=== PATIENT | female | born 1945 | race Caucasian/White ===

== ENCOUNTER → 2020-08-25 | Outpatient (CLI) | payer OTHER ==
[~2020-08-25] VITALS: Ht 167.6 cm; Wt 88.5 kg
[~2020-08-25] MED LIST: ARICEPT10 M1 PO; ATORVASTATIN CA20 MG PO; CARBIDOPA-LEVO1 EAC7 PO; CLONAZEPAM 0.50.5 M1 PO; DULOXETINE HCL60 MG PO; FLECAINIDE ACET50 M2 PO; GABAPENTIN100 MG PO; LEVOTHYROXINE125 MC1 PO; LISINOPRIL20 MG PO; MELOXICAM15 MG PO; MIRALAX119 GM PO; MORPHINE SULFAT15 M3 PO; NORVASC10 MG PO; PROTONIX40 M4 PO; TIZANIDINE HCL4 M2 PO; XARELTO20 MG PO
--- NOTE | ~2020-08-25 | HPC ---
[facility] [address] [address] PAIN MANAGEMENT CONSULTATION Name: JUSTYNA WILLIS Room #: REG CORAL NohemiSydKyle#: [id number] Admission: 08/25/20 Attend Phys: Kirt Laguna DO Discharge: Date of : 47 Report #: [id number] THIS REPORT FOR: cc: Dennis Garcia,Dennis Catalan,Kirt Guerra DO ~ DATE OF SERVICE: 08/25/2020 REFERRING PHYSICIAN: Dr. Dennis Garcia. CHIEF COMPLAINT: Low back pain, intermittent lower extremity pain with paresthesias. HISTORY OF PRESENT ILLNESS: As you know, the patient is a 74-year-old female who began experiencing low back pain, bilateral lower extremity pain that began 05/2018. Denies injury or trauma that may have led to symptom development. She has trialled [id number] medications without much in the way of benefit. She had trialled chronic opioid medication for which she takes morphine 15 mg b.i.d. and gabapentin 100 mg p.o. at bedtime. Despite these medications, her pain continues to be at a level of 4/10. She was sent to see Dr. Sandoval and they recommended surgery, but there were some concerns about her newly diagnosed Parkinson's disease and they recommend that she begin treatment for her Parkinson's initially and once that is better controlled, then surgical options could be warranted. This has been also advised to the patient by her neurologist. Due to lack of improvement with conservative treatments in the form medication management, the patient was referred to our clinic to discuss interventional therapies. The patient reports today her pain is transient in nature. Describes pain as aching, sharp, stabbing with intermittent numbness and tingling. Places current pain score at 8/10, daily average at 5/10, worst pain has been is 10/10. The patient states pain is exacerbated with standing and lying in bed, improves with sitting in a chair and medications. PAST MEDICAL HISTORY: 1. Parkinson's disease. 2. Hypertension. 3. Hypothyroidism. 4. Hyperlipidemia. 5. Anxiety disorder. 6. Paroxysmal atrial fibrillation requiring anticoagulation. 7. Gastroesophageal reflux disease. 8. Osteoarthritis. 9. Spinal stenosis of lumbar spine. 10. Bladder muscle dysfunction. [address] [address] PAIN MANAGEMENT CONSULTATION Name: JUSTYNA WILLIS Room #: REG [facility].#: [id number] Admission: 08/25/20 Attend Phys: Kirt Laguna DO Discharge: Date of : 47 Report #: [id number] PAST SURGICAL HISTORY: 1. Tonsillectomy and adenoidectomy. 2. Abdominal hysterectomy. 3. Cholecystectomy. 4. Appendectomy. 5. Lumbar spine fusion. 6. Right total knee arthroplasty. SOCIAL HISTORY: The patient denies current tobacco use. Denies IV or illicit drug use. She is a retired nurse, retiring in 2015; not receiving workmen's compensation nor is she trying to obtain disability benefits. She is not in litigation in regard to pain. She is accompanied by her daughter, present in room today. PAIN IMPACT SCORE: 70 of 70, complete interference of daily activities secondary to pain. REVIEW OF SYSTEMS: Positive for weight gain, decrease in appetite, fatigue and weakness, frequent and recurrent headaches, anxiety disorder, cataracts, shortness of breath on walking or lying flat, heart trouble, changes in bowel movements, frequent diarrhea interspersed with constipation, nocturia, frequent and uncontrollable urination, incontinence and dribbling to urine, lightheadedness and dizziness, numbness and tingling sensations, tremors, memory loss with confusion, nervousness, depression, insomnia, thyroid disease, heat and cold intolerance, bleeding and bruising tendencies. All other review of systems negative per 12-point review of systems other than those listed in history of present illness. ALLERGIES: IODINE AND IBUPROFEN. CURRENT MEDICATIONS: Duloxetine 60 mg once a day, Xarelto 20 mg once a day, tizanidine 4 mg p.r.n., pantoprazole 40 mg per day, MS Contin 15 mg twice a day, MiraLax 17 grams per day, meloxicam 15 mg once a day, lisinopril 20 mg per day, levothyroxine 125 mcg per day, gabapentin 200 mg p.o. at bedtime, flecainide 50 mg once a day, donepezil 10 mg once a day, clonazepam 0.5 mg b.i.d., carbidopa and levodopa 50/200 mg 3 times a day, atorvastatin 20 mg per day, amlodipine 10 mg per day. IMAGING: MRI lumbar spine shows instrumented posterior spinal fusion with disk space device placement and laminectomy, decompression at L4-L5, no residual stenosis at this level. At L1-L2, there is endplate changes, superimposed disk osteophyte complex, mild bilateral facet arthropathy, mild bilateral neural foraminal stenosis. L2-L3 shows endplate osteophytosis, [id number] bilateral facet arthropathy, mild retrolisthesis, mild right foraminal stenosis, mild central canal stenosis. L3-L4 left lateral prominent disk bulge with endplate phytosis, severe bilateral facet arthropathy. There is hypertrophy of [address] [address] PAIN MANAGEMENT CONSULTATION Name: JUSTYNA WILLIS Room #: REG CORAL Ramírez#: [id number] Admission: 08/25/20 Attend Phys: Kirt Laguna DO Discharge: Date of : 46 Report #: [id number] the ligamentum flavum. Moderate right and severe left neural foraminal stenosis. There is severe central canal stenosis. L5-S1 shows moderate right and severe left facet arthropathy. PQRS: The patient has known arthritic changes of the lumbar spine, bilateral hips and knees. No rheumatoid arthritis. Placing current pain score 4/10. She is a fall risk, but has not had a fall in last 3 months. She is on blood thinner in the form of Xarelto, but has not stopped that medication in preparation for today appointment. She is treated for hypertension. She is on chronic opioids, has a low opioid addiction potential based on our assessment tool. Pain impact 70 of 70, complete interference of daily activities secondary to pain. PHYSICAL EXAMINATION: VITAL SIGNS: Blood pressure 147/82, pulse 104, respiratory rate 20 and unlabored. The patient is 100% on room air. Height 5 feet 6 inches tall, weight 195 pounds, BMI calculated 31.5. GENERAL: Well-developed, well-nourished, well-hydrated exogenously obese 74-year-old female appearing her stated age, pain is rated today 4/10. HEENT: Normocephalic, atraumatic. Pupils equal, round and reactive to light. Extraocular muscles are intact. NEUROLOGIC: Speech fluent. The patient deemed a fair historian. LUNGS: Clear, no wheeze, rhonchi or rales. CARDIOVASCULAR: Regular. No appreciable gallop, no rub. ABDOMEN: Soft, obese, normal active bowel sounds. EXTREMITIES: Show no clubbing, no cyanosis. No appreciable edema. MUSCULOSKELETAL: Lower extremity strength is diminished bilaterally, but symmetrical. Seated straight leg raising negative. Supine straight leg raising is negative. Yanira's test is negative. Modified Gaenslen's positive for axial low back pain. Ankle clonus negative. Babinski is negative. Gait is antalgic. She has a forward flexed stance. There is bilateral lower extremities deconditioning. ASSESSMENT: 1. Symptomatic lumbar radiculopathy. 2. Severe central canal stenosis of lumbar spine. 3. Severe neural foraminal stenosis of lumbar spine. 4. Facet arthropathy of the lumbar spine. 5. Lumbosacral spondylosis with radiculopathy. 6. Degeneration of lumbar spine. 7. Failed lumbar spine surgery. 8. Chronic intractable pain. PLAN: 1. The patient has been referred to our clinic by her primary physician, Dr. Dennis Garcia, for evaluation for lumbar radiculopathy [place] [address] PAIN MANAGEMENT CONSULTATION Name: MOE WILLISA Room #: REG CORAL Ramírez#: [id number] Admission: 08/25/20 Attend Phys: Kirt Laguna DO Discharge: Date of : 46 Report #: [id number] central canal stenosis. We have had with the patient a very long discussion in regard to the findings of the MRI and how they correlate to her symptoms. It would appear that the patient is suffering from central canal stenosis at the level of the L3-L4, just above her previous surgery. This is not unusual to see development of severe stenosis occur over a period of time and unfortunately, this has been the case in this patient's lumbar region. She has sought evaluation through neurosurgery, who advised once she has her Parkinson's disease better controlled that surgical options may be entertained, but at this time, they recommend more conservative treatment approach. The patient was subsequently referred to my clinic. We discussed the following with the patient is treatment options today. We discussed physical therapy, stretching exercises and core strengthening as a treatment option. This in conjunction with strengthening of the lower extremities could improve symptoms to some degree. We discussed suggestions of medications, escalating doses of gabapentin in hopes of improving pain, understanding that the side effects of this medication may limit our capabilities in this patient's case. We also discussed epidural injections for which the patient was referred to our clinic, though the patient would have to come off her Xarelto in preparation for that type of procedure. We also discussed spinal cord stimulator therapy with this patient and ultimately surgical options, which I believe will ultimately be necessary. After reviewing risks and benefits of all proposed treatment options, the patient chose to consider initially a lumbar epidural injection under fluoroscopic guidance. 2. The patient will need to contact her pricing lead to confirm she can come off her Xarelto for the 3 days required for the epidural injection. If the patient is able to undergo clearance to come off the Xarelto, we will have her come off the medication in preparation for a lumbar epidural injection to be provided at the L3-L4 level. We also discussed with the patient that if she does wish to move forward with a spinal cord stimulator as a treatment option as she has been advised this is a potential treatment course, she would also have to come off the Xarelto, so clearance would need to be made. 3. The patient will be sent for psychiatric evaluation to determine if she is a candidate to undergo a spinal cord stimulator. If the patient is deemed appropriate to undergo spinal cord stimulator trial, we would certainly be willing to provide this as an option of treatment. I do feel it will provide some improvement in symptoms, though ultimately I do feel that surgery is going to be necessary given her age of 74 and the severity of the stenosis noted at the L3-L4 level. Certainly, the spinal cord stimulator could provide benefit as her pain is now at a level that she cannot participate in daily activities. The patient will undergo the psychiatric evaluation. Once it is completed and if she is deemed an appropriate candidate, we will move forward with a trial implantation of a spinal cord stimulator. 4. No medication changes made at today's visit. The patient will continue current medical therapy as prior prescribed. We have requested that she contact Cardiology in regard to coming off the Xarelto in preparation for either a lumbar epidural injection or down the line looking at spinal cord stimulator [facility] [address] [place] [address] PAIN MANAGEMENT CONSULTATION Name: JUSTYNA WILLIS Room #: REG CORAL Ramírez#: [id number] Admission: 08/25/20 Attend Phys: Kirt Laguna DO Discharge: Date of : 46 Report #: [id number] trial where she will have to be off the Xarelto for 3 days in preparation for the placement of the device. She will then need some type of Lovenox bridge through the trial process and then restarted on Xarelto after the trial process and she will need to coordinate this with her pricing lead. 5. We wish to thank Dr. Dennis Garcia for the opportunity to see this patient in consultation. We will keep you apprised of response to treatment as we address lumbar radicular symptoms secondary to severe central canal stenosis at the L3-L4 level. Again, we wish to thank you for the opportunity to see this patient in consultation. By: [id number] Kirt Laguna DO /nt
[2020-08-25 10:27] VITALS: BP 147/82
--- NOTE | 2020-08-25 10:47 | NUR ---
Pain Clinic Assessment: 1. History of Osteoarthritis: BACK HIPS History of Rheumatoid Arthritis: 2. Height: 5 ft. 6 in. 167.6 cm. Weight: 195.0 lb. oz. 88.452 kg. Patient's BMI: 31.5 3. Vital Signs: BP: 147/82 Pulse: 104 Resp: 20 Temp: 02 Sat: 100 ECG Mon: 4. Pain Intensity: 4 5. Fall Risk: Dizziness: Y Needs help standing or walking: Y Fallen in the last 3 months: N Fall risk comments: 6. Patient on Blood Thinner: XARELTO 7. History of Hypertension: Y 8. Opioid Therapy greater than 6 weeks: Y Opiate Contract Signed: 9. Risk Assessment Tool Provided: 1-LOW RISK 10. Functional Assessment Tool: 70/70 11. Recreational Drug Use: Never Drug Type: Tobacco Use: Never Smoker Tobacco Type: Amount or Packs/day: How Many Years: Alcohol Use: No Frequency: Quant:
== END ==
LOC: PAIN 06:50
PROVIDERS: ATTEND Anesthesiology Pain Medicine
DX: M47.27 Other spondylosis with radiculopathy, lumbosacral region (principal); M79.609 Pain in unspecified limb; R20.2 Paresthesia of skin; G89.29 Other chronic pain; M96.1 Postlaminectomy syndrome, not elsewhere classified; M48.061 Spinal stenosis, lumbar region without neurogenic claudication; Z88.8 Allergy status to other drugs, medicaments and biological substances; Z79.899 Other long term (current) drug therapy

== ENCOUNTER → 2020-09-01 | Outpatient (CLI) | payer OTHER ==
[~2020-09-01] VITALS: Ht 167.6 cm; Wt 85.5 kg
[~2020-09-01] MED LIST changes: +VITAMIN D3 COM1 EACH PO
[2020-09-01 12:53] VITALS: BP 157/95
--- NOTE | 2020-09-01 13:01 | NUR ---
Pain Clinic Assessment: 1. History of Osteoarthritis: BACK HIPS History of Rheumatoid Arthritis: 2. Height: 5 ft. 6 in. 167.6 cm. Weight: 188.6 lb. oz. 85.548 kg. Patient's BMI: 30.5 3. Vital Signs: BP: 157/95 Pulse: 105 Resp: 18 Temp: 02 Sat: 99 ECG Mon: 4. Pain Intensity: 4 TO 9 WITH WALKING 5. Fall Risk: Dizziness: Y Needs help standing or walking: Y Fallen in the last 3 months: N Fall risk comments: 6. Patient on Blood Thinner: XARELTO 7. History of Hypertension: Y 8. Opioid Therapy greater than 6 weeks: Y Opiate Contract Signed: 9. Risk Assessment Tool Provided: 1-LOW RISK 10. Functional Assessment Tool: 70/70 11. Recreational Drug Use: Never Drug Type: Tobacco Use: Never Smoker Tobacco Type: Amount or Packs/day: How Many Years: Alcohol Use: No Frequency: Quant:
--- NOTE | 2020-09-02 07:43 | HPC ---
[facility] [place] [address] PAIN MANAGEMENT CONSULTATION Name: JUSTYNA WILLIS Room #: REG CORAL Darrell#: [id number] Admission: 09/01/20 Attend Phys: Kirt Laguna DO Discharge: Date of : 46 Report #: [id number] THIS REPORT FOR: cc: Dennis Garcia,Dennis Catalan,Kirt Guerra DO ~ DATE OF SERVICE: 09/01/2020 CHIEF COMPLAINT: Low back pain, intermittent lower extremity pain with paresthesias. HISTORY OF PRESENT ILLNESS: As you know, the patient is a 74-year-old female who began experiencing low back pain, bilateral lower extremity pain that presented 05/2018. She denies injury or trauma that may have led to symptom development. As you are aware, the patient has had extensive fusion surgery in the lumbar spine fusing L4 to L5 with instrumentation. The patient reports pain has been present since that time. She has been newly diagnosed with Parkinson's disease, which is believed to be part of her movement disorder separate from her lumbar radiculopathy. The patient was referred to our clinic to discuss interventional treatments to address lumbar radiculopathy. She was seen in consultation on 08/25/2020 and provided today's appointment to return to undergo lumbar epidural injection as she had to come off of her Xarelto in preparation for the procedure. She has been off the Xarelto for 3 days prior to today's appointment to undergo the first in a series of lumbar epidural injections under fluoroscopic guidance. ALLERGIES: IODINE AND IBUPROFEN. CURRENT MEDICATIONS: Multivitamin, duloxetine, tizanidine, pantoprazole, morphine sulfate, MiraLax, meloxicam, lisinopril, levothyroxine, gabapentin, flecainide, donepezil, clonazepam, carbidopa/levodopa, atorvastatin, amlodipine and Xarelto. SOCIAL HISTORY: The patient denies tobacco, alcohol, IV or illicit drug use. She is retired, retired years ago, accompanied by daughter present in room today. IMAGING: There is no new imaging available. PQRS: The patient has known arthritic changes of the lumbar spine, bilateral hips and knees. No rheumatoid arthritis. She is placing pain intensity today at a 4-9/10. HEENT: Normocephalic, atraumatic. The patient is wearing a mask in compliance with COVID-19 regulations. EXTREMITIES: Show no clubbing, no cyanosis, no edema. MUSCULOSKELETAL: Lower extremity strength is diminished bilaterally, but [address] [address] PAIN MANAGEMENT CONSULTATION Name: JUSTYNA WILLIS Room #: REG [facility]#: [id number] Admission: 09/01/20 Attend Phys: Kirt Laguna DO Discharge: Date of : 46 Report #: [id number] symmetrical. Seated straight leg raising negative. Supine straight leg raising negative. Yanira's test is negative again today. Modified Gaenslen's positive for axial low back pain, well-healed surgical scars. ASSESSMENT: 1. Symptomatic lumbar radiculopathy. 2. Severe central canal stenosis of the lumbar spine. 3. Severe neural foraminal stenosis of lumbar spine. 4. Facet arthropathy of the lumbar spine. 5. Lumbosacral spondylosis with radiculopathy. 6. Degeneration of lumbar spine. 7. Failed lumbar spine surgery. 8. Chronic intractable pain. PLAN: 1. The patient returns today in followup visit having discontinued her Xarelto in preparation for a lumbar epidural injection. The patient has been advised of the risks and the benefits of a lumbar epidural injection. These risks include, but are not necessarily limited to; bleeding, bruising, infection, worsening pain, no relief of pain, temporary or permanent muscle weakness, temporary or permanent nerve damage, possible paralysis and . The patient states understood and wished to proceed. 2. No medication changes made at today's visit. The patient will restart her Xarelto this evening and continue the Xarelto until our next visit. At that time, if we determine she needs the next in the series of epidural injections, we will have her come off the medication in preparation for the next in the series of procedures. 3. We will see the patient back in followup visit in about 30 days. At that time, review the efficacy of today's epidural injection. We are hopeful the patient will see good and prolonged benefit with epidural injection provided today. PROCEDURE NOTE DESCRIPTION OF PROCEDURE: L5-S1 right parasagittal epidural steroid injection under fluoroscopic guidance. After obtaining written consent, the patient was taken back to fluoroscopy suite, placed in prone position with pillow under abdomen to decrease lumbar lordosis. Skin overlying the lumbosacral area then prepped and draped in aseptic fashion. The L5-S1 vertebral interspace was identified by AP fluoroscopy. Skin and subcutaneous tissue overlying target site injection anesthetized with 3 mL of 1% lidocaine. A 20-gauge 3-1/2 inch Tuohy needle advanced under fluoroscopic guidance towards the epidural space using a right parasagittal approach. Epidural space [address] [address] PAIN MANAGEMENT CONSULTATION Name: JUSTYNA WILLIS Room #: REJI Ramírez#: [id number] Admission: 09/01/20 Attend Phys: Kirt Laguna DO Discharge: Date of : 46 Report #: [id number] identified using loss of resistance to air technique. Due to a contrast allergy, no contrast agent was used in today's procedure. Needle positioning was confirmed using both AP and lateral fluoroscopy. After negative aspiration for heme or cerebrospinal fluid, 5 mL of a solution containing 2 mL 40 mg per mL, 80 mg total triamcinolone along with 3 mL of lidocaine 1% preservative-free was injected slowly. Needle retracted fci, flushed with 1 mL of 1% lidocaine then removed. Sterile bandage placed over injection site. No new motor deficits present in the lower extremities following procedure. The patient tolerated procedure well, carefully escorted to recovery room in stable condition. No apparent complications. After meeting discharge criteria, the patient was discharged home. <ELECTRONICALLY SIGNED> By: Kirt Laguna DO 09/02/20 0743 1416 09 Kirt Laguna DO /nt
== END | disposition home or self-care (01) ==
LOC: PAIN 06:59
PROVIDERS: ATTEND Anesthesiology Pain Medicine
DX: M51.16 Intervertebral disc disorders with radiculopathy, lumbar region (principal); M47.27 Other spondylosis with radiculopathy, lumbosacral region; M47.26 Other spondylosis with radiculopathy, lumbar region; M96.1 Postlaminectomy syndrome, not elsewhere classified; M48.061 Spinal stenosis, lumbar region without neurogenic claudication; M19.90 Unspecified osteoarthritis, unspecified site; Z98.890 Other specified postprocedural states; Z79.899 Other long term (current) drug therapy; Z91.041 Radiographic dye allergy status; Z88.8 Allergy status to other drugs, medicaments and biological substances; Z79.01 Long term (current) use of anticoagulants

== ENCOUNTER → 2020-10-06 | Outpatient (CLI) | payer OTHER ==
[~2020-10-06] VITALS: Ht 167.6 cm; Wt 86.8 kg
[~2020-10-06] MED LIST changes: +REQUIP5 MG PO
[2020-10-06 10:39] VITALS: BP 148/99
--- NOTE | 2020-10-06 10:52 | NUR ---
Pain Clinic Assessment: 1. History of Osteoarthritis: BACK HIPS History of Rheumatoid Arthritis: 2. Height: 5 ft. 6 in. 167.6 cm. Weight: 191.4 lb. oz. 86.819 kg. Patient's BMI: 30.9 3. Vital Signs: BP: 148/99 Pulse: 110 Resp: 20 Temp: 02 Sat: 100 ECG Mon: 4. Pain Intensity: 4 TO 9 WITH WALKING 5. Fall Risk: Dizziness: N Needs help standing or walking: Y Fallen in the last 3 months: N Fall risk comments: 6. Patient on Blood Thinner: XARELTO 7. History of Hypertension: Y 8. Opioid Therapy greater than 6 weeks: Y Opiate Contract Signed: 9. Risk Assessment Tool Provided: 1-LOW RISK 10. Functional Assessment Tool: 70/70 11. Recreational Drug Use: Never Drug Type: Tobacco Use: Never Smoker Tobacco Type: Amount or Packs/day: How Many Years: Alcohol Use: No Frequency: Quant:
--- NOTE | 2020-10-07 08:22 | HPC ---
[facility] [place] [address] PAIN MANAGEMENT CONSULTATION Name: JUSTYNA WILLIS Room #: REG CORAL Sam.#: [id number] Admission: 10/06/20 Attend Phys: Kirt Laguna DO Discharge: Date of : 47 Report #: [id number] THIS REPORT FOR: cc: Dennis Garcia,Dennis Catalan,Kirt Guerra DO ~ DOC #: [id number] cc: Dennis Laguna DO DATE OF SERVICE: 10/06/2020 CHIEF COMPLAINT: Low back pain, intermittent lower extremity pain with paresthesias. HISTORY OF PRESENT ILLNESS: As you know, the patient is a 74-year-old female who began advancing low back pain, bilateral lower extremity pain that presented 05/2018. Denies injury or trauma. As you are aware, the patient has severe central canal stenosis at the level just above her fusion, which is consistent with the patient's pain distribution. She underwent a lumbar epidural injection under fluoroscopic guidance on 09/01/2020 after discontinuing her anticoagulant Xarelto in preparation for the procedure. She reports that she received improvement in symptoms, but only transiently. She returns today in followup visit to undergo the second in the series of lumbar epidural injections. We did discuss that if injections do not provide benefit, she would have to look towards either medication management for which she is taking treatment through Dr. Dennis Garcia's office or to look toward surgical decompression of the L3-L4 level, which will likely be necessary. We also discussed spinal cord stimulator therapy with the patient as treatment option as well. She returned to undergo the second in series of lumbar epidural injections in hopes of improving pain. She denies injury or trauma that may have led to symptom development. ALLERGIES: IODINE AND IBUPROFEN. CURRENT MEDICATIONS: See chart. SOCIAL HISTORY: The patient denies tobacco, alcohol or IV or illicit drug use. She is retired, retired years ago, accompanied by her daughter, present in room today. IMAGING: No new imaging available. PQRS: The patient has known arthritic changes of lumbar spine, bilateral hips and knees. No rheumatoid arthritis. Pain was placed at 4-9/10 depending on activity. She is a fall risk, but has not had a fall in last 3 months. She is not utilizing any type of ambulatory device or balanced device to assist with ambulation. She is on the blood thinner, Xarelto, but discontinued the [address] [address] PAIN MANAGEMENT CONSULTATION Name: JUST[facility] WILLIS [id number] Admission: 10/06/20 Attend Phys: Kirt Laguna DO Discharge: Date of : 47 Report #: [id number] medication three days ago. She is treated for hypertension. She is on opioids and has a low opioid addiction potential. Pain impact is 70/70 complete interference of daily activity. PHYSICAL EXAMINATION: VITAL SIGNS: Blood pressure 148/99, pulse is 110, respiratory rate 20, unlabored. The patient 100% on room air. Height 5 feet 6 inches tall, weight 191.4 pounds, BMI calculated 30.9. GENERAL: Well-developed, well-nourished, well-hydrated 74-year-old female appearing stated age, pain is rated today at a 4-9/10. HEENT: Normocephalic, atraumatic. The patient is wearing a mask in compliance with COVID-19 regulations. She is answering questions appropriately. EXTREMITIES: Show no clubbing, no cyanosis, no edema. MUSCULOSKELETAL: Lower extremity strength remains diminished bilaterally, but symmetrical. Seated straight leg raising negative. Supine straight leg raising negative. Yanira's test is negative. Gait is antalgic, appears to be favoring left lower extremity. Muscle bulk and tone is symmetrical in lower extremities. ASSESSMENT: 1. Symptomatic lumbar radiculopathy. 2. Severe and progressively worsening central canal stenosis of the lumbar spine. 3. Severe neural foraminal stenosis of lumbar spine. 4. Facet arthropathy, lumbar spine. 5. Lumbosacral spondylosis with radiculopathy. 6. Degeneration of lumbar spine. 7. Failed lumbar spine surgery. 8. Chronic intractable pain. PLAN: 1. The patient returns today in followup visit indicating only transient improvement in symptoms with the epidural injection provided at the last visit. The patient wishes to trial another in the series of epidural injections in hopes of gaining further benefit. The patient and I did discuss that if the second epidural injection provides no significant pain improvement, we would recommend either adjustments in her medication management, which we can provide suggestions to the primary care to direct or look towards either spinal cord stimulator or surgical decompression. The patient is agreeable with this plan. 2. The patient has been advised risks and benefits of a lumbar epidural injection. These risks include but are not necessarily limited to bleeding, bruising, infection, worsening pain, no relief of pain, also risk of temporary or permanent muscle weakness, temporary or permanent nerve damage, possible paralysis, and . The patient states understood and wished to proceed. 3. No medication changes made at today's visit. The patient will continue current medical therapy as prior prescribed. 4. We will see the patient back in followup visit on an as needed basis for the [address] [address] PAIN MANAGEMENT CONSULTATION Name: JUSTYNA WILLIS Room #: REG [facility]#: [id number] Admission: 10/06/20 Attend Phys: Kirt Laguna DO Discharge: Date of : 47 Report #: [id number] next in the series of lumbar epidural injections assuming she receives good benefit with today's procedure. DESCRIPTION OF PROCEDURE: L3-L4 interlaminar epidural steroid injection under fluoroscopic guidance. After obtaining written consent, the patient was taken back to fluoroscopy suite, placed in prone position with pillow under abdomen to decrease lumbar lordosis. Skin overlying lumbosacral area prepped and draped in aseptic fashion. The L3-L4 level was identified by AP fluoroscopy. Skin and subcutaneous tissue overlying target site injection anesthetized with 3 mL 1% lidocaine. A 20 gauge 3-1/2 inch Tuohy needle advanced under fluoroscopic guidance towards the epidural space using a paramedian approach. Epidural space identified using loss of resistance to air technique. Due to a CONTRAST ALLERGY, no contrast agent was used in today's procedure. Needle positioning was confirmed using both AP and lateral fluoroscopy. After negative aspiration for heme or cerebrospinal fluid, 4 mL of a solution containing 2 mL, 40 mg per mL 80 mg total triamcinolone along with 2 mL of lidocaine, 1% preservative-free injected slowly. Needle then retracted alf flushed with 1 mL of 1% lidocaine, then removed. Sterile bandage placed over injection site. No new motor deficits present in the lower extremity following procedure. The patient tolerated the procedure well, carefully escorted to recovery room in stable condition. No apparent complications. After meeting our discharge criteria, the patient discharged home. Kirt Laguna DO JEJ/KDA <ELECTRONICALLY SIGNED> By: Kirt Laguna DO 10/07/20 [id number] Kirt Laguan DO /nt
== END | disposition home or self-care (01) ==
LOC: PAIN 07:29
PROVIDERS: ATTEND Anesthesiology Pain Medicine
DX: M51.16 Intervertebral disc disorders with radiculopathy, lumbar region (principal); M48.061 Spinal stenosis, lumbar region without neurogenic claudication; M47.27 Other spondylosis with radiculopathy, lumbosacral region; M96.1 Postlaminectomy syndrome, not elsewhere classified; I10 Essential (primary) hypertension; G89.29 Other chronic pain; M19.90 Unspecified osteoarthritis, unspecified site; Z91.041 Radiographic dye allergy status; Z88.8 Allergy status to other drugs, medicaments and biological substances; Z98.890 Other specified postprocedural states; Z79.899 Other long term (current) drug therapy